=== PATIENT | female | born 1985 | race Caucasian/White ===

== ENCOUNTER 2019-04-04 09:43 | Emergency (ER) | payer OTHER ==
[~2019-04-04] VITALS: Ht 167.6 cm; Wt 64.8 kg
--- NOTE | 2019-04-04 10:01 | NUR ---
PT HAS CO OF ABDOMINAL PAIN THAT HAS BEEN CONSTANT FOR A WEEK. "PAIN IS WORSE THE DAY GOES ON". PT DENIES NAUSEA/VOMITING AFTER EATING, BUT PAIN GETS WORSE AFTER EATING,. NO URINARY SYMPTOMS. PT 18 WEEKS .
[2019-04-04 10:06] VITALS: BP 110/75
[2019-04-04] MEDS ORDERED: LAMO200T3 PO (10:08)
[2019-04-04 10:32] LABS: BASOPHILS # (AUTO) 0.01 x10^3/uL (0-0.1); BASOPHILS % (AUTO) 0 % (0-1); EOSINOPHILS # (AUTO) 0.34 x10^3/uL (0-0.4); EOSINOPHILS % (AUTO) 3 % (1-7); LYMPHOCYTES # (AUTO) 1.36 x10^3/uL (1-3.4); LYMPHOCYTES % (AUTO) 14 % (22-44); MD NO; MEAN CORPUSCULAR HEMOGLOBIN 30.9 pg (27.0-34.8); MEAN CORPUSCULAR HGB CONC 33.4 g/dL (32.4-35.8); MEAN CORPUSCULAR VOLUME 92.3 fL (80-100); MEAN PLATELET VOLUME 7.4 fL (7.4-10.4); MONOCYTES # (AUTO) 0.52 x10^3/uL (0.2-0.8); MONOCYTES % (AUTO) 5 % (2-9); NEUTROPHILS # (AUTO) 7.79 x10^3/uL (1.8-6.8); NEUTROPHILS % (AUTO) 78 % (42-75); PLATELET COUNT 239 x10^3/uL (130-400); RED BLOOD COUNT 4.23 x10^6/uL (3.82-5.3); RED CELL DISTRIBUTION WIDTH 13.9 % (9.6-15.2)
[2019-04-04 10:43] LABS: ALANINE AMINOTRANSFERASE 15 U/L (12-78); ANION GAP 5 mmol/L (5-15); CALCIUM 8.7 mg/dL (8.5-10.1); CHLORIDE 108 mmol/L (98-107)
[2019-04-04 10:46] LABS: ALKALINE PHOSPHATASE 72 U/L (45-117); BILIRUBIN,TOTAL 0.3 mg/dL (0.2-1.0); CREATININE 0.53 mg/dL (0.55-1.02); TOTAL PROTEIN 6.4 g/dL (6.4-8.2)
--- NOTE | 2019-04-04 11:20 | NUR ---
Patient/Caregiver given discharge instructions and they have confirmed that they understand the instructions. Patient ambulatory with steady gait.
== END 2019-04-04 11:21 | disposition home or self-care (01) ==
LOC: ED 11:10
DX: O26.892 Other specified pregnancy related conditions, second trimester (principal); R10.11 Right upper quadrant pain; R11.0 Nausea; Z3A.19 19 weeks gestation of pregnancy
CPT/HCPCS: 36415; 76700; 80053; 83690; 85025; 99284

== ENCOUNTER 2019-08-07 12:11 | Outpatient (CLI) | payer OTHER ==
[2019-08-07 12:00] VITALS: BP 121/85
[~2019-08-07 12:11] MED LIST: LAMO200T3 PO
[2019-08-07] MEDS ORDERED: TERBUTALINE 1 MG/ML, 1ML IV ONE (12:30)
[2019-08-07] MEDS ORDERED: PLEASE ENTER HEIGHT AND WEIGHT MC SCH (13:00)
== END 2019-08-07 14:00 | disposition home or self-care (01) ==
LOC: UNDOADMOB 12:11 → LDIP 12:11 → LDOP 12:11 → UNDODISOB 14:00 → EDSTATUS 08-11 14:27
PROVIDERS: ATTEND Obstetrics & Gynecology
DX: O32.1XX1 Maternal care for breech presentation, fetus 1 (principal); Z3A.37 37 weeks gestation of pregnancy
CPT/HCPCS: 59025; 59412; 96372; 99201; J3105; G0378; G0463